=== PATIENT | male | born 1980 | race Caucasian/White ===

== ENCOUNTER 2022-03-03 17:32 | Emergency (ER) | payer MEDICAID ==
[~2022-03-03] VITALS: Ht 193 cm; Wt 90.9 kg
[2022-03-03 17:46] VITALS: BP 147/93
[2022-03-03] MEDS ORDERED: ibuprofen tablet 400 MG TABLET PO ONE (18:40)
--- NOTE | 2022-03-03 18:46 | NUR ---
PO MED GIVEN
== END 2022-03-03 19:03 | disposition home or self-care (01) ==
LOC: ER 17:32
DX: S93.402A Sprain of unspecified ligament of left ankle, initial encounter (principal); G89.29 Other chronic pain; M54.9 Dorsalgia, unspecified; I10 Essential (primary) hypertension; F32.A Depression, unspecified; F12.10 Cannabis abuse, uncomplicated; Z56.0 Unemployment, unspecified; X58.XXXA Exposure to other specified factors, initial encounter; Y93.89 Activity, other specified; Y92.89 Other specified places as the place of occurrence of the external cause; Y99.8 Other external cause status
CPT/HCPCS: 73610; 99283

== ENCOUNTER 2022-05-11 22:33 | Emergency (ER) | payer MEDICAID ==
[~2022-05-11] VITALS: Ht 193 cm; Wt 88.6 kg
[2022-05-11 22:52] VITALS: BP 122/86
== END 2022-05-12 01:55 | disposition left against medical advice (07) ==
LOC: ER 22:33
DX: M79.672 Pain in left foot (principal); Z53.21 Procedure and treatment not carried out due to patient leaving prior to being seen by health care provider

== ENCOUNTER 2022-10-25 14:37 | Emergency (ER) | payer MEDICAID ==
[~2022-10-25] VITALS: Ht 193 cm; Wt 95.0 kg
[2022-10-25] MEDS ORDERED: oxyCODONE/APAP 10/325mg tablet PO ONE (16:15)
[2022-10-25] MEDS ORDERED: normal saline 1000ML IV soln IVB ONE (16:20)
[2022-10-25] MEDS ORDERED: ondansetron/PF 4mg/2ml inj IV ONE (16:45)
[2022-10-25 17:19] LABS: BASOPHILS # (AUTO) 0.1 X10'3 (0-0.2); BASOPHILS % (AUTO) 0.8 % (0-1); EOSINOPHILS # (AUTO) 0.7 X10'3 (0-0.9); EOSINOPHILS % (AUTO) 6.6 % (0-6); HEMATOCRIT 40.5 % (42.0-52.0); HEMOGLOBIN 13.5 g/dl (14.0-17.9); LYMPHOCYTES # (AUTO) 2.3 X10'3 (1.1-4.8); LYMPHOCYTES % (AUTO) 20.9 % (21-51); MEAN CORPUSCULAR HEMOGLOBIN 31.1 PG (27.0-31.0); MEAN CORPUSCULAR HGB CONC 33.3 g/dL (33.0-36.5); MEAN CORPUSCULAR VOLUME 93.5 FL (78-98); MEAN PLATELET VOLUME 7.9 FL (7.4-10.4); MONOCYTES % (AUTO) 8.8 % (2-12); NEUTROPHILS % (AUTO) 62.9 % (42-75); PLATELET COUNT 356 X10'3 (140-440); RED BLOOD COUNT 4.33 X10'6 (4.70-6.10); RED CELL DISTRIBUTION WIDTH 14.3 % (11.5-14.5); WHITE BLOOD COUNT 11.1 X10'3 (4.5-11.0)
[2022-10-25 17:26] LABS: ALANINE AMINOTRANSFERASE 19 U/L (12-78); ALBUMIN 3.2 G/DL (3.4-5.0); ALBUMIN/GLOBULIN RATIO 1.2 (1.1-1.5); ALKALINE PHOSPHATASE 66 IU/L (46-116); ANION GAP 5 (8-16); ASPARTATE AMINO TRANSFERASE 23 U/L (10-37); BILIRUBIN,TOTAL 0.6 MG/DL (0.1-1.0); BLOOD UREA NITROGEN 10 MG/DL (7-18); BUN/CREATININE RATIO 9.1 (10.0-20.0); CALCIUM 8.7 MG/DL (8.5-10.1); CHLORIDE 105 MMOL/L (99-107); GLUCOSE 86 MG/DL (70-104); MAGNESIUM 1.9 MG/DL (1.5-2.4); POTASSIUM 3.5 MMOL/L (3.5-5.1); SODIUM 140 MMOL/L (135-145); TOTAL CARBON DIOXIDE 30.1 MMOL/L (24-32); TOTAL PROTEIN 5.9 G/DL (6.4-8.2); eGFR 74 ML/MIN
[2022-10-25 17:51] VITALS: BP 118/84
[2022-10-25] MEDS ORDERED: dexamethasone sod phosphate 10mg/ml inj IM STA (18:20)
[2022-10-25] MEDS ORDERED: sulfamethoxazole/trimethoprim DS (800/160mg) tablet PO ONE (18:20)
[2022-10-25] MEDS ORDERED: cephalexin 500mg capsule PO ONE (18:20)
[2022-10-25] MEDS ORDERED: CEPH500C2 PO (18:31)
[2022-10-25] MEDS ORDERED: SULF1TAB49 PO (18:31)
[2022-10-25] MEDS ORDERED: PRED20TA PO (18:31)
[2022-10-25] MEDS ORDERED: HYDR-3973 PO (18:51)
== END 2022-10-25 19:27 | disposition home or self-care (01) ==
LOC: ER 14:37
DX: M79.671 Pain in right foot (principal); R50.9 Fever, unspecified; I10 Essential (primary) hypertension; G89.29 Other chronic pain; M54.9 Dorsalgia, unspecified; F32.A Depression, unspecified; F15.10 Other stimulant abuse, uncomplicated; Z59.00 Homelessness unspecified; Z79.899 Other long term (current) drug therapy
CPT/HCPCS: 36415; 80053; 83605; 83735; 84145; 85025; 87040; 93005; 96372; 96374; 99284; A6223; J1100; J2405; J7030; A6258; A6446; A6455

== ENCOUNTER 2024-11-18 11:41 | Emergency (ER) | payer MEDICAID ==
[~2024-11-18] VITALS: Ht 193 cm; Wt 94.6 kg
[2024-11-18 11:44] VITALS: TEMP 97.7
[2024-11-18] MEDS: triamcinolone acetonide 40mg/ml inj IM ONE (14:14)
[2024-11-18] MEDS ORDERED: PRED20TA PO (15:04)
--- NOTE | 2024-11-18 15:04 | Physician Documentation ---
History of Present Illness ~ Chief Complaint: Rash Stated Complaint: ECEZMA BREAKOUT Time Seen by MD: 14:40 OK to notify your PCP?: Yes [facility] Mode of Arrival: POV Exam Limitations: no limitations HPI 44-year-old male presents with severe itchy eczema outbreak for the past day. He states that he has a dining room manager in [place], Dr. Tang, and is planning on going on a once a month injection for his symptoms. He states he has not taken any prednisone but that a 3 day course typically helps dramatica lly. Medication Reconciliation Allergies: Coded Allergies: No Known Allergies (Unverified , 10/09/10) Scheduled Prednisone* (Prednisone*), 3 TAB PO DAILY Past Medical History Past Medical History: Hypertension, Chronic Back Pain, Depression Past Surgical History: no surgical history Alcohol Use: Occasionally Drug Use: marijuana Lives with: Spouse, Family Lives In: Home Occupation: unemployed Review of Systems All Other Systems at this time: Reviewed and Negative Physical Exam Vital Signs: RN Vital Signs have been reviewed: Yes, Temperature: 97.7, Source: Oral, Heart Rate: 115, Respiratory Rate: 16, BP: 160/100, Pulse Oximetry: 100, Weight: 94.600 Oxygen Flow Rate: 0 Pulse Oximetry Reflects: adequate oxygenation Physical Exam General: Alert, no distress. HEENT: No injection, moist mucous membranes. Neck: Full range of motion. Respiratory: No respiratory distress, equal chest rise and fall. Chest: No accessory muscle use. Cardiovascular: Regular rate and rhythm. Gastrointestinal: Nondistended. Extremities: Normal range of motion, no deformity. Neurologic: Oriented x4. Psychiatric: Normal mood and affect. Skin: Diffuse hives and erythematous macule papular rash to face, trunk and extremities, including the palms. No warmth, discharge noted. Progress Results/Orders Results/Orders Medications Received in ER Medications (Trade) Dose Ordered Sig/Briana Route PRN Reason Start Time Stop Time Status Last Admin Dose Admin (Kenalog-40 inj) 60 mg ONCE ONCE IM 11/18/24 13:50 11/18/24 13:51 DC 11/18/24 14:14 60 MG Vital Signs 11/18/24 11:44 Temp 97.7 Pulse 115 Resp 16 B/P (MAP) 160/100 Pulse Ox 100 O2 Flow Rate 0 Medical Decision Making Additional info obtained from: family Findings 44-year-old male with diffuse severe eczema outbreak. He has plans on going on a once a month injection with his dining room manager but is awaiting insurance purposes. He is requesting prednisone and states that a 3-5 day course typically takes care of his symptoms. While here, we gave a Kenalog injection and prescribed a 5 day course of a prednisone taper pack. He was given strict instructions to call his dining room manager on Wednesday to be seen and he can return back here for any new or worsening symptoms. We also discussed that if he starts having any oozing from the sites or fevers or signs of infection, he needs to be seen as he may have caused a secondary bacterial infection due to scratching the rash and needs to be placed on antibiotics. I do not see any signs of infection that would require antibiotics at this time. Differential Dx:Considerations: Include: Abscess, Impetigo, Pityriasis rosea, Psoriaisis, Rosacea, Scabies, Scarlet fever, Varicella, Viral exanthema Departure Disposition: HOME / SELF CARE / HOMELESS Impression: Primary Impression: Eczema Additional Impression: Urticaria Discharge Instructions: Hives Additional Instructions: Call your dining room manager Wednesday to be seen. Monitor for signs of infection as you may need an antibiotic. Please take the Prednisone as prescribed. Return back here for any worsening symptoms. Referrals: NO PRIMARY CARE PROVIDER (PCP) Prescriptions Prednisone* (Prednisone*) 20 Mg Tablet 3 TAB PO DAILY for 5 Days, #10 TAB Day 1: Take 3 tablets by mouth daily Day 2: take 2.5 tablets by mouth daily. Day 3: take 2 tablets by mouth daily. Day 4: take 1.5 tablets by mouth daily Day 5: take 1 tablet by mouth. Prov: SHANNON LUQUE 11/18/24 Education Educated: Patient Educated regarding: diagnosis, treatment, prognosis, need for follow up Signature Scribe Signature: . Attestation: Scribed for Shannon Luque by Shannon Yousif NP . 11/18/24 15:11 SHANNON LUQUE Nov 18, 2024 15:04
[2024-11-18 15:15] VITALS: BP 121/79; PULSE 88; RESP 19; O2SAT 99
== END 2024-11-18 15:21 | disposition home or self-care (01) ==
LOC: ER 11:42
DX: L30.9 Dermatitis, unspecified (principal); L50.9 Urticaria, unspecified; I10 Essential (primary) hypertension; F12.90 Cannabis use, unspecified, uncomplicated
CPT/HCPCS: 96372; 99283; J3301